=== PATIENT | female | born 1935 ===

== ENCOUNTER → 2018-11-14 | Outpatient (CLI) | payer MEDICARE, OTHER ==
[~2018-11-14] MED LIST: AMLO5 PO; ATEN50 PO; GEMF600 PO; LOSA25 PO
== END ==
LOC: LAB 11:30 → LAB SHORT 11:30
DX: R30.0 Dysuria (principal)
CPT/HCPCS: 87077; 87086; 87147; 87186

== ENCOUNTER → 2018-12-04 | Outpatient (CLI) | payer MEDICARE, OTHER | END | disposition home or self-care (01) | LOC: LAB SHORT 10:08 → LAB 10:08 | DX: B30.0 Keratoconjunctivitis due to adenovirus (principal); R30.0 Dysuria | CPT/HCPCS: 87077; 87086; 87147; 87186 ==